=== PATIENT | female | born 1940 | race Caucasian/White ===

== ENCOUNTER 2016-11-08 09:22 | Emergency (ER) | payer OTHER ==
[~2016-11-08] VITALS: Ht 157.5 cm; Wt 99.0 kg
[~2016-11-08 09:22] MED LIST: ALLOPURINOL100 MG PO; AMLODIPINE BESYL5 MG PO; GEMFIBROZIL600 MG PO; HYDROCHLOROTH12.5 M3 PO; LOSARTAN POTAS100 MG PO; METOPROLOL TAR100 MG PO; PRAVASTATIN SOD40 MG PO; TYLENOL WITH C1 EACH PO
[2016-11-08] MEDS ORDERED: TRAMADOL HCL50 MG PO (13:51)
[2016-11-08 14:22] VITALS: BP 171/69
== END 2016-11-08 14:23 | disposition home or self-care (01) ==
LOC: EME → EDBD 09:22 → EME 09:22
DX: M25.562 Pain in left knee (principal); E78.5 Hyperlipidemia, unspecified; I10 Essential (primary) hypertension; W22.09XA Striking against other stationary object, initial encounter; Z88.0 Allergy status to penicillin
CPT/HCPCS: 73564; 99281; 99284